=== PATIENT | male | born 1975 | race Caucasian/White ===

== ENCOUNTER 2017-05-01 12:50 | Inpatient (IN) | payer SELFPAY ==
[~2017-05-01] VITALS: Ht 188 cm; Wt 108.1 kg
[2017-05-01] MEDS ORDERED: MORPHINE SULFATE 4 MG/ML, 1ML ONE ×2 (13:25→15:14)
[2017-05-01] MEDS ORDERED: FAMOTIDINE 20 MG/2 ML ONE (13:25)
[2017-05-01] MEDS ORDERED: METOCLOPRAMIDE 5 MG/ML, 2ML ONE (13:25)
[2017-05-01] MEDS ORDERED: MAALOX/HYOSCYAMINE/LIDOCAINE 45 ML BTL ONE (13:25)
[2017-05-01] MEDS ORDERED: MAALOX/HYOSCYAMINE/LIDOCAINE 45 ML BTL PO ONE (13:30)
[2017-05-01] MEDS ORDERED: SODIUM CHLORIDE FLUSH 10ML SYR IVF ONE (13:30)
[2017-05-01] MEDS ORDERED: FAMOTIDINE 20 MG/2 ML IVP ONE (13:30)
[2017-05-01] MEDS ORDERED: PLEASE ENTER ALLERGIES MC SCH ×2 (13:30)
[2017-05-01] MEDS ORDERED: SODIUM CHLORIDE 0.9% 1,000ML IVBOLUS ONE (13:30)
[2017-05-01] MEDS ORDERED: METOCLOPRAMIDE 5 MG/ML, 2ML IVPush ONE (13:30)
[2017-05-01] MEDS: MORPHINE SULFATE 4 MG/ML, 1ML IVPush PRN ×2 (13:38→15:30)
[2017-05-01 13:44] LABS: HEMATOCRIT 44.3 % (39.2-51.8); HEMOGLOBIN 14.7 g/dL (13.7-18.0); WHITE BLOOD COUNT 15.9 x10^3/uL (3.4-10)
[2017-05-01 13:48] LABS: ASPARTATE AMINO TRANSFERASE 11 U/L (15-37); BLOOD UREA NITROGEN 11 mg/dL (7-18)
[2017-05-01] MEDS ORDERED: OMNIPAQUE 350 MG/ML, 100ML BOTTLE ONE (14:21)
[2017-05-01] MEDS ORDERED: HYDROmorphone 1 MG/ML, 1ML IV ONE (15:30)
[2017-05-01] MEDS ORDERED: HYDROmorphone 1 MG/ML, 1ML ONE (16:10)
[2017-05-01] MEDS ORDERED: PIPERACILLIN/TAZO/PMX 4.5GM 100 ML IV ONE (16:30)
[2017-05-01] MEDS ORDERED: ACETAMINOPHEN 325 MG TABLET PO PRN (17:30)
[2017-05-01] MEDS ORDERED: hydrALAzine 20 MG/ML, 1ML IVPush PRN (17:30)
[2017-05-01] MEDS ORDERED: OXYcodone IR 5MG TABLET PO PRN (17:30)
[2017-05-01] MEDS ORDERED: ONDANSETRON 2MG/ML, 2ML IVPush PRN (17:30)
[2017-05-01 17:40] VITALS: BP 157/98
[2017-05-01 17:47] VITALS: BP 157/98
[2017-05-01] MEDS: morphine SULFATE 10 MG/ML, 1ML IVPush PRN ×2 (18:21→21:45)
[2017-05-01] MEDS: PIPERACILLIN/TAZO/PMX 3.375GM 50 ML IV SCH ×2 (18:21→23:41)
[2017-05-01] MEDS: D5%-0.9% NACL+KCL 20MEQ 1,000 ML IV SCH (18:21)
[2017-05-01 21:11] VITALS: BP 157/104
[2017-05-02] MEDS: morphine SULFATE 10 MG/ML, 1ML IVPush PRN ×6 (01:07→22:17)
[2017-05-02 02:03] VITALS: BP 160/92
[2017-05-02 02:11] VITALS: BP 158/89
[2017-05-02] MEDS: D5%-0.9% NACL+KCL 20MEQ 1,000 ML IV SCH ×2 (03:13→10:34)
[2017-05-02] MEDS: PIPERACILLIN/TAZO/PMX 3.375GM 50 ML IV SCH ×4 (04:19→23:52)
[2017-05-02 05:08] LABS: HEMATOCRIT 38.9 % (39.2-51.8); HEMOGLOBIN 13.1 g/dL (13.7-18.0); WHITE BLOOD COUNT 15.4 x10^3/uL (3.4-10)
[2017-05-02 05:52] LABS: ASPARTATE AMINO TRANSFERASE 9 U/L (15-37); BLOOD UREA NITROGEN 10 mg/dL (7-18)
[2017-05-02 07:07] VITALS: BP 150/96
[2017-05-02 13:52] VITALS: BP 150/99
[2017-05-02] MEDS ORDERED: MIDAZOLAM 1 MG/ML, 2ML ONE ×3 (15:59→18:17)
[2017-05-02] MEDS ORDERED: FENTANYL PF 100 MCG/2ML ONE ×6 (15:59→18:57)
[2017-05-02] MEDS ORDERED: ROCURONIUM 10 MG/ML ONE (16:23)
[2017-05-02] MEDS ORDERED: GLYCOPYRROLATE 0.2MG/1ML ONE (16:23)
[2017-05-02] MEDS ORDERED: PROPOFOL 10 MG/ML, 20ML ONE (16:23)
[2017-05-02] MEDS ORDERED: SUCCINYLCHOLINE 20 MG/ML, 10ML ONE (16:23)
[2017-05-02] MEDS ORDERED: DEXAMETHASONE 4 MG/ML, 1ML ONE (16:23)
[2017-05-02] MEDS ORDERED: NEOSTIGMINE 1 MG/ML, 10ML ONE (16:23)
[2017-05-02] MEDS ORDERED: ONDANSETRON 2MG/ML, 2ML ONE (16:23)
[2017-05-02] MEDS ORDERED: CEFOTETAN 2 GM ONE (16:23)
[2017-05-02] MEDS ORDERED: HYDROmorphone 2 MG/ML, 1ML ONE ×2 (16:58→18:57)
[2017-05-02] MEDS ORDERED: KETAMINE 10 MG/ML, 20ML ONE (17:14)
[2017-05-02] MEDS ORDERED: THROMBIN 5,000 UNIT VIAL TP ONE (17:28)
[2017-05-02] MEDS ORDERED: BUPIVACAINE/PF 0.25% ONE (17:43)
[2017-05-02] MEDS: FENTANYL PF 100 MCG/2ML IV PRN ×5 (18:22→20:17)
[2017-05-02] MEDS ORDERED: ACETAMINOPHEN 650 MG/20.3 ML UDC ONE (18:29)
[2017-05-02] MEDS ORDERED: OXYcodone 5 MG/5 ML ORAL.SOL UDC ONE (18:29)
[2017-05-02] MEDS ORDERED: HYDROmorphone 1 MG/ML, 1ML ONE (18:29)
[2017-05-02] MEDS ORDERED: ALBUTEROL/IPRATROPIUM 2.5MG/0.5MG, 3 ML NPPB PRN (18:30)
[2017-05-02] MEDS ORDERED: ONDANSETRON 2MG/ML, 2ML IVPush PRN (18:30)
[2017-05-02] MEDS ORDERED: METOCLOPRAMIDE 5 MG/ML, 2ML IV PRN (18:30)
[2017-05-02] MEDS ORDERED: OXYcodone 5 MG/5 ML ORAL.SOL UDC PO PRN (18:30)
[2017-05-02] MEDS ORDERED: LABETALOL 5MG/ML, 20ML IV PRN (18:30)
[2017-05-02] MEDS ORDERED: DIAZEPAM 5 MG/ML, 2ML IV PRN (18:30)
[2017-05-02] MEDS ORDERED: hydrALAzine 20 MG/ML, 1ML IV PRN (18:30)
[2017-05-02] MEDS ORDERED: PROMETHAZINE 25 MG/ML, 1ML IV PRN (18:30)
[2017-05-02] MEDS ORDERED: MEPERIDINE/PF 25MG/0.5ML IVPush PRN (18:30)
[2017-05-02] MEDS: HYDROmorphone 1 MG/ML, 1ML IV PRN ×6 (18:39→19:39)
[2017-05-02] MEDS: MIDAZOLAM 1 MG/ML, 2ML IV PRN ×2 (19:49→20:35)
[2017-05-02 21:00] VITALS: BP 160/101
[2017-05-02 23:34] VITALS: BP 172/104
[2017-05-03] MEDS: HYDROmorphone PCA 30 MG/30 ML IV PRN (01:22)
[2017-05-03] MEDS ORDERED: morphine SULFATE 10 MG/ML, 1ML IVPush PRN (02:30)
[2017-05-03] MEDS ORDERED: SODIUM CHLORIDE 0.9%, 500ML IV PRN (02:30)
[2017-05-03] MEDS ORDERED: ONDANSETRON 2MG/ML, 2ML IVPush PRN (02:30)
[2017-05-03] MEDS: SODIUM CHLORIDE 0.9% 1,000 ML IV SCH ×3 (02:45→17:04)
[2017-05-03] MEDS: DIAZEPAM 5 MG/ML, 10ML VIAL IV PRN ×2 (02:45→18:14)
[2017-05-03 04:18] VITALS: BP 148/96
[2017-05-03 05:58] LABS: HEMATOCRIT 38.5 % (39.2-51.8); HEMOGLOBIN 12.7 g/dL (13.7-18.0); WHITE BLOOD COUNT 16.4 x10^3/uL (3.4-10)
[2017-05-03 06:02] LABS: BLOOD UREA NITROGEN 8 mg/dL (7-18)
[2017-05-03 06:07] LABS: ASPARTATE AMINO TRANSFERASE 9 U/L (15-37)
[2017-05-03] MEDS: PIPERACILLIN/TAZO/PMX 4.5GM 100 ML IV SCH ×3 (06:39→17:03)
[2017-05-03 07:20] VITALS: BP 155/98
[2017-05-03 14:30] VITALS: BP 133/76
[2017-05-03 20:55] VITALS: BP 129/74
[2017-05-04] MEDS: PIPERACILLIN/TAZO/PMX 4.5GM 100 ML IV SCH ×4 (00:32→17:44)
[2017-05-04] MEDS: HYDROmorphone PCA 30 MG/30 ML IV PRN (01:50)
[2017-05-04 01:58] VITALS: BP 131/81
[2017-05-04] MEDS: SODIUM CHLORIDE 0.9% 1,000 ML IV SCH ×3 (03:16→20:47)
[2017-05-04 06:03] LABS: BLOOD UREA NITROGEN 10 mg/dL (7-18)
[2017-05-04 06:17] LABS: HEMATOCRIT 32.8 % (39.2-51.8); HEMOGLOBIN 10.9 g/dL (13.7-18.0); WHITE BLOOD COUNT 15.2 x10^3/uL (3.4-10)
[2017-05-04 06:53] VITALS: BP 151/80
[2017-05-04] MEDS: DIAZEPAM 5 MG/ML, 10ML VIAL IV PRN ×2 (08:42→23:18)
[2017-05-04 13:53] VITALS: BP 152/86
[2017-05-04] MEDS ORDERED: VANCOMYCIN PER PHARMACY MC PRN (19:00)
[2017-05-04] MEDS ORDERED: PHARMACOKINETIC MONITORING MC PRN ×2 (19:30→20:00)
[2017-05-04] MEDS ORDERED: PHARMACOKINETIC CONSULTATION MC ONE (19:30)
[2017-05-04] MEDS ORDERED: VANCOMYCIN 2,000 MG in SODIUM CHLORIDE 0.9% 500 ML IV SCH (19:30)
[2017-05-04 19:41] VITALS: BP 133/82
[2017-05-04] MEDS ORDERED: ACETAMINOPHEN 325 MG TABLET PO PRN (20:00)
[2017-05-04] MEDS ORDERED: morphine SULFATE 10 MG/ML, 1ML IVPush PRN (20:00)
[2017-05-04] MEDS ORDERED: SODIUM CHLORIDE 0.9%, 500ML IV PRN (20:00)
[2017-05-04] MEDS ORDERED: ONDANSETRON 2MG/ML, 2ML IVPush PRN (20:00)
[2017-05-04] MEDS ORDERED: OXYcodone IR 5MG TABLET PO PRN (20:00)
[2017-05-04] MEDS: ENOXAPARIN 40 MG/0.4 ML SQ SCH (20:47)
[2017-05-04] MEDS: METOCLOPRAMIDE 10MG TABLET PO PRN (20:48)
[2017-05-04] MEDS ORDERED: SODIUM CHLORIDE 0.9% 1,000 ML IV SCH (22:30)
[2017-05-05] MEDS: PIPERACILLIN/TAZO/PMX 4.5GM 100 ML IV SCH ×2 (00:02→05:35)
[2017-05-05 00:40] VITALS: BP 139/79
[2017-05-05] MEDS: HYDROmorphone PCA 30 MG/30 ML IV PRN (00:45)
[2017-05-05] MEDS: DIAZEPAM 5 MG/ML, 10ML VIAL IV PRN ×2 (03:00→13:03)
[2017-05-05] MEDS: METOCLOPRAMIDE 10MG TABLET PO PRN (03:00)
[2017-05-05 05:26] LABS: HEMATOCRIT 32.3 % (39.2-51.8); HEMOGLOBIN 10.7 g/dL (13.7-18.0); WHITE BLOOD COUNT 13.3 x10^3/uL (3.4-10)
[2017-05-05] MEDS: SODIUM CHLORIDE 0.9% 1,000 ML IV SCH (05:32)
[2017-05-05 05:36] LABS: BLOOD UREA NITROGEN 9 mg/dL (7-18)
[2017-05-05 08:10] VITALS: BP 140/80
[2017-05-05] MEDS: CEFTRIAXONE PMX 2GM/50ML 50 ML IV SCH (11:23)
[2017-05-05 15:00] VITALS: BP 148/91
[2017-05-05 20:00] VITALS: BP_SYST 172; BP_DIAS 8; BP_DIAS 98
[2017-05-05] MEDS: ENOXAPARIN 40 MG/0.4 ML SQ SCH (20:59)
[2017-05-05 21:27] VITALS: BP 137/92
[2017-05-06] MEDS: HYDROmorphone PCA 30 MG/30 ML IV PRN (02:51)
[2017-05-06 04:12] VITALS: BP 149/88
[2017-05-06 04:51] LABS: HEMATOCRIT 30.7 % (39.2-51.8); HEMOGLOBIN 10.1 g/dL (13.7-18.0); WHITE BLOOD COUNT 10.3 x10^3/uL (3.4-10)
[2017-05-06] MEDS: SODIUM CHLORIDE 0.9% 1,000 ML IV SCH ×2 (05:20→20:03)
[2017-05-06 09:24] VITALS: BP 136/90
[2017-05-06] MEDS: CEFTRIAXONE PMX 2GM/50ML 50 ML IV SCH (10:19)
[2017-05-06 13:20] VITALS: BP 151/94
[2017-05-06] MEDS: ENOXAPARIN 40 MG/0.4 ML SQ SCH (20:03)
[2017-05-06 20:05] VITALS: BP 145/91
[2017-05-07] MEDS: DIAZEPAM 5 MG/ML, 10ML VIAL IV PRN (03:06)
[2017-05-07 07:58] VITALS: BP 158/97
[2017-05-07] MEDS: HYDROmorphone PCA 30 MG/30 ML IV PRN (08:40)
[2017-05-07] MEDS: CEFTRIAXONE PMX 2GM/50ML 50 ML IV SCH (11:44)
[2017-05-07 16:39] VITALS: BP 155/92
[2017-05-07 20:35] VITALS: BP 168/102
[2017-05-07] MEDS: ENOXAPARIN 40 MG/0.4 ML SQ SCH (20:41)
[2017-05-07] MEDS: SODIUM CHLORIDE 0.9% 1,000 ML IV SCH (20:41)
[2017-05-07] MEDS ORDERED: DIPHENHYDRAMINE 25 MG CAPSULE PO PRN (23:00)
[2017-05-08 03:11] VITALS: BP 163/98
[2017-05-08 05:08] LABS: HEMATOCRIT 32.8 % (39.2-51.8); HEMOGLOBIN 10.8 g/dL (13.7-18.0); WHITE BLOOD COUNT 11.4 x10^3/uL (3.4-10)
[2017-05-08 05:34] LABS: ASPARTATE AMINO TRANSFERASE 15 U/L (15-37); BLOOD UREA NITROGEN 10 mg/dL (7-18)
[2017-05-08 07:05] VITALS: BP 162/102
[2017-05-08] MEDS: HYDROmorphone PCA 30 MG/30 ML IV PRN (07:15)
[2017-05-08] MEDS ORDERED: MAGNESIUM HYDROXIDE 8%, 30ML UDC PO ONE (09:30)
[2017-05-08] MEDS: CEFTRIAXONE PMX 2GM/50ML 50 ML IV SCH (09:59)
[2017-05-08] MEDS: OXYcodone IR 5MG TABLET PO PRN ×5 (10:02→23:20)
[2017-05-08 13:16] VITALS: BP 161/91
[2017-05-08 19:42] VITALS: BP 174/101
[2017-05-08] MEDS: ENOXAPARIN 40 MG/0.4 ML SQ SCH (19:56)
[2017-05-08] MEDS: hydrALAzine 20 MG/ML, 1ML IVPush PRN (19:56)
[2017-05-08 21:35] VITALS: BP 153/99
[2017-05-08] MEDS: SODIUM CHLORIDE 0.9% 1,000 ML IV SCH (21:41)
[2017-05-09 01:22] VITALS: BP 171/93
[2017-05-09] MEDS: OXYcodone IR 5MG TABLET PO PRN ×7 (02:26→21:49)
[2017-05-09 05:11] LABS: HEMATOCRIT 32.4 % (39.2-51.8); HEMOGLOBIN 10.9 g/dL (13.7-18.0); WHITE BLOOD COUNT 11.4 x10^3/uL (3.4-10)
[2017-05-09 05:17] LABS: BLOOD UREA NITROGEN 14 mg/dL (7-18)
[2017-05-09 06:11] VITALS: BP 163/106
[2017-05-09] MEDS: hydrALAzine 20 MG/ML, 1ML IVPush PRN (06:20)
[2017-05-09 07:32] VITALS: BP 158/95
[2017-05-09] MEDS: CEFTRIAXONE PMX 2GM/50ML 50 ML IV SCH (11:14)
[2017-05-09] MEDS: ONDANSETRON 2MG/ML, 2ML IVPush PRN (12:29)
[2017-05-09 15:50] VITALS: BP 157/95
[2017-05-09 19:22] VITALS: BP 164/92
[2017-05-09] MEDS: ENOXAPARIN 40 MG/0.4 ML SQ SCH (21:44)
[2017-05-09] MEDS: SODIUM CHLORIDE 0.9% 1,000 ML IV SCH (21:45)
[2017-05-10] MEDS: OXYcodone IR 5MG TABLET PO PRN ×6 (00:53→21:40)
[2017-05-10 03:43] VITALS: BP 159/94
[2017-05-10 05:03] LABS: HEMATOCRIT 34.3 % (39.2-51.8); HEMOGLOBIN 11.3 g/dL (13.7-18.0); WHITE BLOOD COUNT 10.4 x10^3/uL (3.4-10)
[2017-05-10 05:08] LABS: BLOOD UREA NITROGEN 14 mg/dL (7-18)
[2017-05-10 09:56] VITALS: BP 152/94
[2017-05-10] MEDS: CEFTRIAXONE PMX 2GM/50ML 50 ML IV SCH (10:53)
[2017-05-10] MEDS: ONDANSETRON 2MG/ML, 2ML IVPush PRN (10:53)
[2017-05-10] MEDS: OxyconTIN ER 10 MG TAB.ER PO SCH ×2 (10:53→22:49)
[2017-05-10 15:40] VITALS: BP 152/88
[2017-05-10 19:04] VITALS: BP 147/93
[2017-05-10] MEDS: SODIUM CHLORIDE 0.9% 1,000 ML IV SCH ×2 (20:00→22:50)
[2017-05-10] MEDS: ENOXAPARIN 40 MG/0.4 ML SQ SCH (20:38)
[2017-05-11 01:09] VITALS: BP 151/88
[2017-05-11] MEDS: OXYcodone IR 5MG TABLET PO PRN ×4 (04:27→20:07)
[2017-05-11 04:56] LABS: HEMATOCRIT 36.9 % (39.2-51.8); WHITE BLOOD COUNT 10.6 x10^3/uL (3.4-10)
[2017-05-11 05:09] LABS: BLOOD UREA NITROGEN 16 mg/dL (7-18)
[2017-05-11 07:41] VITALS: BP 150/91
[2017-05-11] MEDS ORDERED: POLYETHYLENE GLYCOL 17 GM PACKET PO SCH (10:00)
[2017-05-11] MEDS: OxyconTIN ER 10 MG TAB.ER PO SCH ×2 (10:47→16:24)
[2017-05-11] MEDS: KETOROLAC 10MG TABLET PO SCH ×3 (10:47→21:50)
[2017-05-11] MEDS: CEFTRIAXONE PMX 2GM/50ML 50 ML IV SCH (10:48)
[2017-05-11 14:07] VITALS: BP 153/92
[2017-05-11] MEDS ORDERED: ONDANSETRON 2MG/ML, 2ML IVPush PRN ×2 (16:00)
[2017-05-11] MEDS ORDERED: DIAZEPAM 5 MG/ML, 10ML VIAL IV PRN (16:00)
[2017-05-11] MEDS ORDERED: DIPHENHYDRAMINE 25 MG CAPSULE PO PRN (16:00)
[2017-05-11] MEDS ORDERED: ACETAMINOPHEN 325 MG TABLET PO PRN (16:00)
[2017-05-11] MEDS ORDERED: hydrALAzine 20 MG/ML, 1ML IVPush PRN (16:00)
[2017-05-11] MEDS: SODIUM CHLORIDE 0.9% 1,000 ML IV SCH (16:23)
[2017-05-11 19:38] VITALS: BP 142/80
[2017-05-11] MEDS: ENOXAPARIN 40 MG/0.4 ML SQ SCH (20:07)
[2017-05-12] MEDS: OXYcodone IR 5MG TABLET PO PRN ×5 (00:08→20:17)
[2017-05-12] MEDS: OxyconTIN ER 10 MG TAB.ER PO SCH (04:21)
[2017-05-12] MEDS: KETOROLAC 10MG TABLET PO SCH ×4 (04:21→22:01)
[2017-05-12 04:23] VITALS: BP 150/93
[2017-05-12 05:11] LABS: HEMATOCRIT 33.4 % (39.2-51.8); HEMOGLOBIN 10.9 g/dL (13.7-18.0); WHITE BLOOD COUNT 8.8 x10^3/uL (3.4-10)
[2017-05-12 05:19] LABS: BLOOD UREA NITROGEN 21 mg/dL (7-18)
[2017-05-12 07:14] VITALS: BP 127/76
[2017-05-12] MEDS: POLYETHYLENE GLYCOL 17 GM PACKET PO SCH (09:00)
[2017-05-12] MEDS ORDERED: POLYETHYLENE GLYCOL 17 GM PACKET PO SCH (09:00)
[2017-05-12] MEDS: CEFTRIAXONE PMX 2GM/50ML 50 ML IV SCH (09:30)
[2017-05-12] MEDS ORDERED: OxyconTIN ER 20 MG TAB.ER PO SCH (12:00)
[2017-05-12] MEDS ORDERED: FENTANYL 50 MCG PATCH TD SCH (12:00)
[2017-05-12 13:54] VITALS: BP 156/76
[2017-05-12] MEDS: SODIUM CHLORIDE 0.9% 1,000 ML IV SCH (16:00)
[2017-05-12 19:34] VITALS: BP 152/81
[2017-05-12] MEDS: ENOXAPARIN 40 MG/0.4 ML SQ SCH (20:17)
[2017-05-13] MEDS: OXYcodone IR 5MG TABLET PO PRN ×7 (00:25→23:06)
[2017-05-13] MEDS: KETOROLAC 10MG TABLET PO SCH ×4 (04:26→22:25)
[2017-05-13 04:27] VITALS: BP 138/88
[2017-05-13 07:31] VITALS: BP 138/83
[2017-05-13 07:53] VITALS: BP_SYST 138; BP_SYST 151; BP_DIAS 75; BP_DIAS 83
[2017-05-13] MEDS: POLYETHYLENE GLYCOL 17 GM PACKET PO SCH (08:42)
[2017-05-13] MEDS: CEFTRIAXONE PMX 2GM/50ML 50 ML IV SCH (10:30)
[2017-05-13 13:41] VITALS: BP 133/78
[2017-05-13 19:35] VITALS: BP 154/83
[2017-05-13] MEDS: ENOXAPARIN 40 MG/0.4 ML SQ SCH (20:07)
[2017-05-13] MEDS: SODIUM CHLORIDE 0.9% 1,000 ML IV SCH (22:25)
[2017-05-14] MEDS: OXYcodone IR 5MG TABLET PO PRN ×3 (03:02→10:53)
[2017-05-14] MEDS: KETOROLAC 10MG TABLET PO SCH ×2 (04:30→10:53)
[2017-05-14 04:34] VITALS: BP 159/78
[2017-05-14] MEDS: POLYETHYLENE GLYCOL 17 GM PACKET PO SCH (07:52)
[2017-05-14 08:40] VITALS: BP 142/76
[2017-05-14] MEDS ORDERED: CEFD300C37 PO (09:51)
[2017-05-14] MEDS ORDERED: OXYC5TAB3 PO (09:51)
[2017-05-14] MEDS ORDERED: FENT1PAT76 TD (09:51)
[2017-05-14 10:32] VITALS: BP 149/90
[2017-05-14] MEDS: CEFTRIAXONE PMX 2GM/50ML 50 ML IV SCH (10:50)
[2017-05-14 12:42] VITALS: BP 157/90
== END 2017-05-14 13:31 | disposition home or self-care (01) | DRG 853 ==
LOC: ED 15:08 → EDIP 15:46 → 4NOR 17:36 → DCLOUNGE 05-14 13:15
PROC: 0DBN4ZZ Excision of Sigmoid Colon, Percutaneous Endoscopic Approach (ICD-10-PCS; principal; 2017-05-01)
PROC: 0D1M4Z4 Bypass Descending Colon to Cutaneous, Percutaneous Endoscopic Approach (ICD-10-PCS; 2017-05-01)
PROC: 0DTJ4ZZ Resection of Appendix, Percutaneous Endoscopic Approach (ICD-10-PCS; 2017-05-01)
DX: A40.8 Other streptococcal sepsis (principal); K65.1 Peritoneal abscess; E44.0 Moderate protein-calorie malnutrition; E66.01 Morbid (severe) obesity due to excess calories; K57.20 Diverticulitis of large intestine with perforation and abscess without bleeding; D64.9 Anemia, unspecified; Z68.30 Body mass index [BMI] 30.0-30.9, adult; F12.90 Cannabis use, unspecified, uncomplicated; F17.210 Nicotine dependence, cigarettes, uncomplicated; K37 Unspecified appendicitis; Z79.2 Long term (current) use of antibiotics
CPT/HCPCS: 36415; 74177; 80048; 80053; 80061; 81001; 82962; 83036; 83690; 83735; 84439; 84443; 85025; 87040; 87070; 87075; 87077; 87086; 87186; 87205; 88307; 96361; 96374; 96375; 96376; J0696; J1100; J1170; J1650; J2250; J2405; J2543; J2704; J2710; J3010; J3360; J3370; J3490; Q9967; J0330; J0360; J2270; J2765; J3480; J7030; J7040; Q0163; S0028; S0074